=== PATIENT | female | born 1950 | race Caucasian/White ===

== ENCOUNTER 2020-02-15 07:48 | Day surgery (SDC) | payer MEDICARE ==
[~2020-02-15] VITALS: Ht 165.1 cm; Wt 67.6 kg
[~2020-02-15 07:48] MED LIST: CALCIUM 600 +1 EA11 PO; VIT1CAPS12
== END 2020-02-15 11:05 | disposition home or self-care (01) ==
LOC: ORSCSDS 07:48
PROVIDERS: Ophthalmology
PROC: 08RK3JZ Replacement of Left Lens with Synthetic Substitute, Percutaneous Approach (ICD-10-PCS; principal; 2020-02-15 09:00)
DX: H25.12 Age-related nuclear cataract, left eye (principal)
CPT/HCPCS: J2001; J2250; J3010; J3301; J7040; V2632

== ENCOUNTER 2023-02-06 12:11 | Day surgery (SDC) | payer MEDICARE ==
[~2023-02-06] VITALS: Ht 165.1 cm; Wt 66.5 kg
[2023-02-06] MEDS ORDERED: Lisinopril2.5 MG (12:36)
[2023-02-06] MEDS ORDERED: Crestor20 MG (12:38)
--- NOTE | 2023-02-06 12:49 | NUR ---
02/06/23 1249 Flor Evans TETRACAINE DROP IN RIGHT EYE AT 1234. PLEDGET PLACED IN RIGHT EYE AT 1236. PATIENT TOLERATED WELL.
[2023-02-06 13:37] VITALS: BP 126/69
== END 2023-02-06 13:56 | disposition home or self-care (01) ==
LOC: ORSCSDS 12:11
PROVIDERS: Ophthalmology
PROC: 08RJ3JZ Replacement of Right Lens with Synthetic Substitute, Percutaneous Approach (ICD-10-PCS; principal; 2023-02-06 13:30)
DX: H25.11 Age-related nuclear cataract, right eye (principal); Z96.1 Presence of intraocular lens; I10 Essential (primary) hypertension; Z79.899 Other long term (current) drug therapy
CPT/HCPCS: J2250; J3010; J3301; J7040; V2632